=== PATIENT | female | born 1955 | race Caucasian/White ===

== ENCOUNTER 2023-05-14 03:16 | Emergency (ER) | payer BC, SELFPAY ==
--- NOTE | ~2023-05-14 | CT_ITS ---
CT head without contrast Indication: Status post fall Technique: Serial scans were obtained through the brain without the administration of contrast. Dose reduction technique was used on this scan by utilizing automated exposure control and iterative recon struction technique. The dose-length product (DLP) was 605.33 mGy-cm. Findings: There is no evidence of intracranial hemorrhage, mass lesion, or acute infarct. The ventri cles and subarachnoid spaces are dilated, consistent with mild atrophy. Low attenuation regions are seen within the periventricular white matter bilaterally, likely representing changes from chronic mi crovascular ischemic disease. There is no evidence of edema, mass effect or midline shift. The visu alized paranasal sinuses and mastoid air cells are clear. Impression: No intracranial hemorrhage, mass, or acute infarct. Atrophy and chronic white matter changes, as above. Reviewed, dictated and finalized at location . [employer] Impression: No intracranial hemorrhage, mass, or acute infarct. Atrophy and chronic white matter changes, as above.
[2023-05-14 03:17] VITALS: BP 125/90; PULSE 100; RESP 20; TEMP 36.6; O2SAT 98
--- NOTE | 2023-05-14 03:56 | ED_ITS ---
HPI - Fall General Chief Complaint: Fall Stated Complaint: fall Time Seen by Provider: 05/14/23 03:26 History of Present Illness HPI Narrative: patient is a 67-year-old female with a history of [place]'s presenting after a fall. Patient is coming from a nursing facility. She states that she fell out of bed striking her head. She did not lose consciousness. she denies pain other than in the back of her head. Denies further injuries or complaints. Related Data Allergies Allergy/AdvReac Type Severity Reaction Status Date / Time Penicillins Allergy Hives Verified 05/14/23 03:27 Review of Systems Review of Systems: All systems reviewed & are unremarkable except as noted in HPI and below Exam 2 Narrative: GENERAL: Chronically ill-appearing, choreiform movements present HEAD: Normocephalic, hematoma to left posterior scalp with overlying abrasion EYES: PERRLA and EOMI. ENT: grossly unremarkable NECK: Supple. no midline tenderness CHEST: No respiratory distress. HEART: Regular rate and rhythm EXTREMITIES: Normal range of motion. SKIN: Warm, dry NEURO: Alert and oriented x3. PSYCH: Normal mood and affect. Course Vital Signs Vital signs: Vital Signs Temperature 97.8 F 05/14/23 03:17 Pulse Rate 100 05/14/23 03:17 Respiratory Rate 20 05/14/23 03:17 Blood Pressure 125/90 05/14/23 03:17 Pulse Oximetry 98 05/14/23 03:17 Oxygen Delivery Room Air 05/14/23 03:17 Temperature 97.8 F 05/14/23 03:17 Pulse Rate 88 05/14/23 06:40 Respiratory Rate 19 05/14/23 06:40 Blood Pressure 121/87 05/14/23 06:40 Pulse Oximetry 97 05/14/23 06:40 Oxygen Delivery Room Air 05/14/23 03:17 MDM - Fall MDM Narrative Medical decision making narrative: 67-year-old female presenting with a head injury after falling out of bed. Vitals are stable. Exam remarkable for the above. She does have left posterior scalp hematoma with overlying abrasion. I do not appreciate a laceration. she has no midline C-spine tenderness. CT brain obtained which shows no acute abnormalities. Patient is safe for discharge. Tylenol for pain. Recommend PCP follow-up. Discharged in stable condition. Differential Diagnosis Differential diagnosis: Likely other ( Head injury, head contusion, hematoma) Imaging Data Radiologist's impression: ITS Impressions Head CT 05/14/23 05:40 Impression: No intracranial hemorrhage, mass, or acute infarct. Atrophy and chronic white matter changes, as above. Critical Care Time Critical Care Time Critical Care Time: No Discharge Plan Discharge Clinical Impression: Fall, Scalp hematoma Patient Disposition: Home, Self-Care Condition: Stable Instructions: Antibiotic Form, Head Injury (ED) Additional Instructions: the CT scan of your brain today shows no acute abnormalities. You do have a hematoma on the back of your head with an abrasion. Please keep this area clean and dry. Please follow-up with your PCP. Follow-up/Referrals: Keyshawn,MD Ministerio [Primary Care Provider] -
[2023-05-14] MEDS: LORazepam INJ (*CRX) 2 MG/ML VIAL 1 MG IM (04:13)
[2023-05-14 05:09] VITALS: BP 120/60; PULSE 77; RESP 18; O2SAT 98
[2023-05-14 06:40] VITALS: BP 121/87; PULSE 88; RESP 19; O2SAT 97
== END 2023-05-14 06:40 | disposition home or self-care (01) ==
PROVIDERS: Emergency Provider Emergency Medicine; PCP Internal Medicine
DX: S00.03XA Contusion of scalp, initial encounter (principal); G10 Huntington's disease; W06.XXXA Fall from bed, initial encounter
CPT/HCPCS: 70450; 96372; 99284; J2060

== ENCOUNTER 2024-11-21 13:46 | Emergency (ER) | payer BC, SELFPAY ==
--- NOTE | ~2024-11-21 | CT_ITS ---
History: Fall PROCEDURE: CT cervical spine and facial bones without intravenous contrast. COMPARISON: None TECHNIQUE: Multiple contiguous axial images of the cervical spine and facial bones were performed without the ad ministration of intravenous contrast. DLP: 101 mGy-cm FINDINGS: Straightening of the normal curvature of the cervical spine is identified, likely muscular in origin. Degenerative disease is identified, with disc space narrowing and osteophyte formation at the levels of C5/C6, T1/T2 and T2/T3. No acute fractures are present within the cervical spine. The bilateral lung apices are unremarkable. No acute facial bone fracture. The airway is patent. Impression: Straightening of the normal curvature of the cervical spine, likely muscular in origin. Degenerative disease, without acute fracture within the cervical spine. No acute facial bone fracture Reviewed, dictated and finalized at location A. Impression: Straightening of the normal curvature of the cervical spine, likely muscular in origin. Degenerative disease, without acute fracture within the cervical spine. No acute facial bone fracture
--- NOTE | ~2024-11-21 | CT_ITS ---
EXAMINATION: CT brain wo con DATE: 11/21/2024 14:21 INDICATION: Trauma TECHNIQUE: Computed tomography (CT) of the head was performed without intravenous contrast. The dose- length product was 605.33 mGy-cm. Automated exposure control and iterative reconstruction technique w ere employed. COMPARISON: CT dated 05/14/2023 FINDINGS: Generalized atrophy. There are scattered mild periventricular and subcortical white matter changes, most likely related to small vessel ischemic disease (microangiopathy). There is frontal and left periorbital soft tissue hematoma. No ventriculomegaly or midline shift. Generalized atrophy. Th ere are scattered mild periventricular and subcortical white matter changes, most likely related to s mall vessel ischemic disease (microangiopathy). . There is compensatory dilation of the ventricles. P aranasal sinuses are pneumatized. There is a right mastoid effusion. No depressed skull fractures. No acute infarction, hemorrhage or mass. IMPRESSION: 1. No acute intracranial abnormality. 2: Left periorbital and frontal scalp hematoma without underlying fracture. Reviewed, dictated and finalized at location A.
[2024-11-21 13:46] VITALS: BP 123/80; PULSE 65; RESP 18; TEMP 36.7; O2SAT 100
--- NOTE | 2024-11-21 13:51 | ED.GENADULT ---
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 Patient does have a avalos hematoma on the left lateral face may fall a few days ago, EMS states the patient was evaluated for this injury a few days ago. Patient had a fall again today from her wheelchair where she struck the middle of her forehead and does have a new area of ecchymosis. Patient is non verbal at baseline per staff. Related Data Allergies Allergy/AdvReac Type Severity Reaction Status Date / Time Penicillins Allergy Hives Verified 05/14/23 03:27 Review of Systems Review of Systems: ROS unobtainable: Yes unobtainable due to medical condition Exam Narrative: APPEARANCE: No distress HEAD: normocephalic, multiple head and facial hematomas. EYES: PERRLA/EOMI, conjunctivae clear. NOSE: Normal no drainage EARS:TMS clear with good light reflex. THROAT: Pharynx clear, no exudate. NECK: Supple. No adenopathy, no masses. RESPIRATORY: Airway patent, respirations nonlabored. Clear to auscultation bilaterally, no rales, rhonchi, wheezing. CARDIOVASCULAR: Regular rate and rhythm without murmurs rubs or gallops. ABDOMINAL: Soft, nontender, nondistended, normal bowel sounds MUSCULOSKELETAL: Moves all extremities. Strength/ROM intact, No edema, No calf tenderness. NEURO: Alert. Nonverbal and at normal baseline SKIN: Warm, dry. Normal Color Course Vital Signs Vital signs: Vital Signs Temperature 98.1 F 11/21/24 13:46 Pulse Rate 65 11/21/24 13:46 Respiratory Rate 18 11/21/24 13:46 Blood Pressure 123/80 11/21/24 13:46 Pulse Oximetry 100 11/21/24 13:46 Temperature 98.1 F 11/21/24 13:46 Pulse Rate 65 11/21/24 13:46 Respiratory Rate 18 11/21/24 13:46 Blood Pressure 123/80 11/21/24 13:46 Pulse Oximetry 100 11/21/24 13:46 Medical Decision Making MDM Narrative Medical decision making narrative: 69-year-old female presents to the emergency department for evaluation for multiple hematomas on her left lateral and central forehead. No acute findings on the CT brain or CT cervical spine. Patient is at her normal baseline per nursing staff. No additional injuries noted during primary and secondary exam. Patient will be discharged back to her care facility. Differential Diagnosis Differential Diagnosis: Subdural hematoma, subarachnoid hemorrhage, cervical spine fracture, facial fracture Vital Signs Vital Signs: Vital Signs Temperature 98.1 F 11/21/24 13:46 Pulse Rate 65 11/21/24 13:46 Respiratory Rate 18 11/21/24 13:46 Blood Pressure 123/80 11/21/24 13:46 Pulse Oximetry 100 11/21/24 13:46 Temperature 98.1 F 11/21/24 13:46 Pulse Rate 65 11/21/24 13:46 Respiratory Rate 18 11/21/24 13:46 Blood Pressure 123/80 11/21/24 13:46 Pulse Oximetry 100 11/21/24 13:46 Imaging Data Radiologist's impression: Impressions Head CT 11/21/24 14:23 IMPRESSION: 1. No acute intracranial abnormality. 2: Left periorbital and frontal scalp hematoma without underlying fracture. Head/Cervical Spine/Facial Bones CT 11/21/24 14:23 Impression: Straightening of the normal curvature of the cervical spine, likely muscular in origin. Degenerative disease, without acute fracture within the cervical spine. No acute facial bone fracture Discharge Plan Discharge Clinical Impression: Head injury, Hematoma of frontal scalp Patient Disposition: NH Correction/Asst Living Condition: Stable Instructions: Antibiotic Form, Head Injury (ED) Additional Instructions: CT cervical spine, CT facial bone and CT brain were negative for acute abnormalities. Patient Language: Indonesian Follow-up/Referrals: Keyshawn,MD Ministerio [Primary Care Provider] -
--- OUTSIDE RECORDS SUMMARY | 2024-11-21 13:54 | XMS_ITS | Patient Health Record ---
Author Organization [facility] Address [address] [place] [address] Care Team Providers Care Oil Treater Name Role Phone LiguoriZuri Jemma Primary Care Provider [phone] Allergies Allergen (clinical drug ingredient) Drug/Non Drug Allergy documented on EMR Reaction Allergy Type Onset Date Status Penicillin G Benzathine swells Drug Allergy Active Reason For Referral No Information Medications Medication SIG (Take, Route, Frequency, Duration) Notes Start Date End Date Status traZODone HCl 50 MG 1 tablet at bedtime as needed Orally Once a day for 30 days Active Ergocalciferol 1.25 MG (15384 UT) 1 capsule Orally weekly for 90 days 07/24/2020 Active Sertraline HCl 50 MG 1 tablet Orally Onc e a day for 30 day(s) Active hydrOXYzine HCl 25 MG 1 tablet as needed Orally every 8 hrs for 30 day(s) Active Social History Tobacco Use: Social History Observation Description Date Details (start date - stop date) Current Smoker NA - NA Dont use, Tobacco Use/Smoking Question Answer Notes Are you a current smoker Alcohol Screen (Audit-C) Question Answer Notes Did you have a drink containing alcohol in the p ast year? No Problems Problem Type SNOMED Code ICD Code Onset Dates Problem Status W/U Status Risk Notes Problem 09002857 Vitamin D deficiency (E55.9) Active confirmed Problem 231817483 Depression with anxiety (F41.8) Active confirmed Problem 25349760 Abhinav chorea (G10) Active confirmed Plan Of Treatment Future Test Test Name Order Date MAMMOGRAM BILAT, SCREENING 08/17/2020 Insurance Providers Payer Name Payer Address Payer Phone Subscriber Number Group Number Insured Name Patient Relationship to Insured Coverage Start Date Coverage End Date [facility] [address] [place] [phone] [id number] [facility] Rachel Ayala Self - patient is the insured Medical (General) History Medical History History ICD Code [place] chorea G10 Surgical History Surgery Date(Month/Year) appendix removal gallbladder removal Hospitalization History Reason Date(Month/Year) gallbladder removal appendix removal
--- OUTSIDE RECORDS SUMMARY | 2024-11-21 13:54 | XMS_ITS | CONTINUITY OF CARE DOCUMENT ---
Author Name moi prater Address Unknown Organization [facility] Address [address] [place] [address] [address] [place] [address] Phone [phone] Care Team Providers Care Size Mixer Name Role Phone Jim Amado MD Unavailable [phone] Jim Amado MD Unavailable [phone] INSURANCE PROVIDERS Payer name Policy type / Coverage type [employer] party ID [facility] [id number]
== END 2024-11-21 15:18 ==
PROVIDERS: Emergency Provider Emergency Medicine; PCP Internal Medicine
DX: S00.83XA Contusion of other part of head, initial encounter (principal); R29.6 Repeated falls; G10 Huntington's disease; M50.322 Other cervical disc degeneration at C5-C6 level; M48.02 Spinal stenosis, cervical region; W05.0XXA Fall from non-moving wheelchair, initial encounter
CPT/HCPCS: 70450; 70486; 72125; 99284; L0140